=== PATIENT | male | born 1945 | race Caucasian/White ===

== ENCOUNTER 2023-06-14 12:58 | Emergency (ER) | payer MEDICARE, BC ==
[~2023-06-14] VITALS: Ht 182.9 cm; Wt 86.2 kg
[2023-06-14 13:07] VITALS: BP 135/75; TEMP 98; O2SAT 98
[2023-06-14] MEDS ORDERED: SULF1TAB48 PO ×2 (13:10→13:25)
== END 2023-06-14 13:25 | disposition home or self-care (01) ==
LOC: ER 13:05
DX: S51.801A Unspecified open wound of right forearm, initial encounter (principal); X58.XXXA Exposure to other specified factors, initial encounter; Y93.89 Activity, other specified; Y92.89 Other specified places as the place of occurrence of the external cause; Y99.8 Other external cause status